=== PATIENT | female | born 1960 | race Caucasian/White ===

== ENCOUNTER 2018-11-16 13:17 | Emergency (ER) | payer SELFPAY ==
[~2018-11-16] VITALS: Ht 167.6 cm; Wt 79.4 kg
[~2018-11-16 13:17] MED LIST: BACL10TA4; IBUP-974; NAPR250T1
[2018-11-16 13:31] VITALS: BP 146/81
--- NOTE | 2018-11-16 15:00 | NUR ---
pt voitting two times since this moring. pt had diarrhea once.pt also c/o heartburn, mild headache and radiating to shoulder. tingling around mouth and eyes. 4-5/10. pt denies any sob, chest pain at this time. er md to see the pt. will continue to monitor pt. hx: high cholesterol tx: lipitor
[2018-11-16] MEDS ORDERED: NACL 0.9% 1,000 ML IV SCH (15:31)
[2018-11-16] MEDS ORDERED: NACL 0.9% 1,000 ML IV ONE (15:31)
[2018-11-16] MEDS ORDERED: PROMETHAZINE 25 MG/ML VIAL IM ONE (15:35)
[2018-11-16 16:26] LABS: BASOPHILS % (AUTO) 0.3 % (0.0-2.0); EOSINOPHILS % (AUTO) 0.5 % (0.0-4.0); HEMATOCRIT 42.4 % (36-48); HEMOGLOBIN 14.6 g/dL (12.0-16.0); LYMPHOCYTES # (AUTO) 1.8 K/uL (2.5-16.5); LYMPHOCYTES % (AUTO) 26.3 % (20.5-51.1); MEAN CORPUSCULAR HEMOGLOBIN 31 pg (27-31); MEAN CORPUSCULAR HGB CONC 35 g/dL (33-37); MEAN CORPUSCULAR VOLUME 89.8 fL (80-94); MONOCYTES # (AUTO) 0.3 K/uL (0.8-1.0); MONOCYTES % (AUTO) 4.3 % (1.7-9.3); NEUTROPHILS # (AUTO) 4.8 K/uL (1.8-7.7); NEUTROPHILS % (AUTO) 68.6 % (42.2-75.2); PLATELET COUNT (AUTO) 284 K/uL (140-450); RED BLOOD CELL COUNT(AUTO) 4.72 MIL/uL (4.20-5.40); RED CELL DISTRIBUTION WIDTH 12.6 % (11.6-13.7)
[2018-11-16 16:37] LABS: APPEARANCE,URINE CLOUDY (CLEAR)
[2018-11-16 16:38] LABS: BLOOD, URINE 3+ (NEGATIVE); COLOR,URINE YELLOW (YELLOW); UGLUCOSE NEGATIVE (NEGATIVE)
[2018-11-16 16:39] LABS: BILIRUBIN,URINE NEGATIVE (NEGATIVE); LEUKOCYTE ESTERASE ,URINE 3+ (NEGATIVE); NITRITE, URINE NEGATIVE (NEGATIVE)
[2018-11-16 16:44] LABS: ALBUMIN 4.3 g/dL (3.4-5.0); AMYLASE 54 U/L (25-115); ANION GAP 15.1 (8-16); ASPARTATE AMINOTRANSFERASE 26 U/L (15-37); CARBON DIOXIDE 27.8 mmol/L (21-32); CHLORIDE 104 mmol/L (98-107); CREATININE 0.7 mg/dL (0.6-1.3); GFR ARICAN-AMERICAN 111 mL/min (>90); GLUCOSE 100 mg/dL (74-106); LIPASE 99 U/L (73-393); POTASSIUM 3.9 mmol/L (3.5-5.1); SODIUM SERUM 143 mmol/L (136-145); TOTAL BILIRUBIN 0.6 mg/dL (0.0-1.0); UREA NITROGEN, BLOOD 11 mg/dL (7-18)
[2018-11-16 16:47] LABS: RBC,URINE 11-20 (MOD) /HPF (0-5); WBC,URINE TOO MANY TO COUNT /HPF (0-5)
[2018-11-16 16:49] LABS: BARBITURATE, URINE NEG. ng/ml (NEG <=200); BENZODIAZEPINE, URINE NEG. ng/mL (NEG <=200); CANNABINOID, URINE NEG. ng/mL (NEG <=50); COCAINE, URINE NEG. ng/mL (NEG <=300); OPIATE, URINE NEG. ng/mL (NEG <=2000); PHENCYCLIDINE SCREEN,URINE NEG. ng/mL (NEG <=25)
--- NOTE | 2018-11-16 17:12 | NUR ---
pt sleeping on her bed comfortably. uine collected and sent to the lab. will continue to monitor pt.
[2018-11-16] MEDS ORDERED: LEVOFLOXACIN 500 MG/D5W PREMIX 100 ML IV ONE (17:40)
[2018-11-16 18:04] LABS: ACETONE, SERUM NEGATIVE (NEGATIVE)
--- NOTE | 2018-11-16 19:21 | NUR ---
REPORT GIVEN TO SUDEEP FROST. PT SILVANO.
[2018-11-16 19:43] VITALS: BP 128/88
--- NOTE | 2018-11-16 19:43 | NUR ---
Patient discharged with v/s stable. Written and verbal after care instructions given and explained. Patient alert, oriented and verbalized understanding of instructions. Ambulatory with steady gait. All questions addressed prior to discharge. ID band removed. Patient advised to follow up with PMD. Rx of PHENERGAN 25MG AND LEVAQUIN 500MG given. Patient educated on indication of medication including possible reaction and side effects. Opportunity to ask questions provided and answered.
== END 2018-11-16 19:43 | disposition home or self-care (01) ==
LOC: MED 13:17
DX: N39.0 Urinary tract infection, site not specified (principal); R11.10 Vomiting, unspecified; R19.7 Diarrhea, unspecified; R42 Dizziness and giddiness; E78.5 Hyperlipidemia, unspecified; Z88.0 Allergy status to penicillin; Z79.899 Other long term (current) drug therapy
CPT/HCPCS: 36415; 80053; 80305; 81001; 82009; 82150; 83690; 83735; 84484; 85025; 87086; 93005; 96361; 96365; 96372; 99284; J1956; J2550; J7030